=== PATIENT | female | born 1990 | race African-American/Black ===

== ENCOUNTER 2020-06-10 14:00 | Emergency (ER) | payer OTHER ==
[~2020-06-10] VITALS: Ht 172.7 cm; Wt 147.0 kg
[2020-06-10] MEDS ORDERED: PHENTERMINE H37.5 MG PO (14:16)
[2020-06-10] MEDS ORDERED: SUPER THERAVIT1 EACH PO (14:16)
[2020-06-10 14:21] LABS: URINE BILIRUBIN NEGATIVE (Negative); URINE BLOOD NEGATIVE (Negative); URINE CLARITY CLEAR; URINE COLOR YELLOW; URINE GLUCOSE-RANDOM NEGATIVE (Negative); URINE KETONES NEGATIVE (Negative); URINE LEUKOCYTES-REFLEX NEGATIVE (Negative); URINE NITRITE-REFLEX NEGATIVE (Negative); URINE PROTEIN NEGATIVE (Negative); URINE SPECIFIC GRAVITY 1.015 (1.005-1.030)
[2020-06-10 15:09] LABS: ABSOLUTE LYMPHOCYTES 1.4 thou/uL (0.8-5.3); ABSOLUTE MONOCYTES 0.5 thou/uL (0.0-1.2); BASOPHILS 0.3 %; EOSINOPHILS 0.1 %; HEMATOCRIT 42.2 % (37.0-47.0); HEMOGLOBIN 13.3 gm/dL (12.0-15.0); LYMPHOCYTES 10.8 %; MCHC 31.6 g/dL (28.0-37.0); MCV 75.8 fL (80.0-100.0); NUCLEATED RBCS 0 /100WBC; PLATELET COUNT* 311 thou/uL (150-400); POLYS 84.8 %; RBC 5.56 mil/uL (4.20-5.00); RDW-CV 15.2 % (10.5-14.5)
[2020-06-10 15:20] LABS: CALCIUM 8.9 mg/dL (8.5-10.1); CREATININE 0.8 mg/dL (0.6-1.3); POTASSIUM 4.1 mmol/L (3.5-5.1)
[2020-06-10 15:25] LABS: ALBUMIN 3.7 g/dL (3.4-5.0); TOTAL BILIRUBIN 0.3 mg/dL (<0.1-1.0); TOTAL PROTEIN 8.2 g/dL (6.4-8.2)
[2020-06-10] MEDS ORDERED: MIRALAX17 GM PO (16:17)
[2020-06-10] MEDS ORDERED: CITRATE OF MAG296 M1 PO (16:17)
[2020-06-10 16:33] VITALS: BP 147/95
== END 2020-06-10 16:35 | disposition home or self-care (01) ==
LOC: M.ERS 14:00
PROVIDERS: Physician Assistant
DX: R10.31 Right lower quadrant pain (principal); R11.2 Nausea with vomiting, unspecified

== ENCOUNTER 2020-08-23 18:04 | Inpatient (IN) | payer OTHER ==
[~2020-08-23] VITALS: Ht 172.7 cm; Wt 147.6 kg
[~2020-08-23 18:04] MED LIST: CITRATE OF MAG296 M1 PO; MIRALAX17 GM PO; PHENTERMINE H37.5 MG PO; SUPER THERAVIT1 EACH PO
[2020-08-23 18:18] VITALS: BP 161/86
[2020-08-23 18:32] LABS: URINE BLOOD NEGATIVE (Negative); URINE CLARITY CLEAR; URINE COLOR DARK YELLOW; URINE GLUCOSE-RANDOM NEGATIVE (Negative); URINE LEUKOCYTES-REFLEX NEGATIVE (Negative); URINE PROTEIN TRACE (Negative); URINE SPECIFIC GRAVITY 1.025 (1.005-1.030)
[2020-08-23 18:38] LABS: URINE BILIRUBIN 3+ (Negative); URINE KETONES 3+ (Negative)
[2020-08-23 18:39] LABS: ACETEST (KETONE CONFIRMATORY) Large (Negative); ICTOTEST (BILI CONFIRMATORY) Positive (Negative)
[2020-08-23 18:46] LABS: BACTERIA-REFLEX >30 Many /HPF (None Seen); CASTS None Seen /LPF (None Seen); CRYSTALS None Seen /LPF (None Seen); MUCUS >6 Heavy strn/LPF (None Seen); SQUAMOUS >10 Many /LPF (0-3); URINE RBC 0-2 Rare /HPF (0-2); URINE WBC-REFLEX 0-5 Rare /HPF (0-5)
[2020-08-23 19:00] LABS: ABSOLUTE BASOPHILS 0.1 thou/uL (0.0-0.2); ABSOLUTE EOSINOPHILS 0.1 thou/uL (0.0-0.7); ABSOLUTE LYMPHOCYTES 1.5 thou/uL (0.8-5.3); ABSOLUTE MONOCYTES 0.7 thou/uL (0.0-1.2); ABSOLUTE NEUTROPHILS 8.3 thou/uL (1.6-8.1); BASOPHILS 0.6 %; EOSINOPHILS 0.5 %; HEMATOCRIT 44.5 % (37.0-47.0); HEMOGLOBIN 14.4 gm/dL (12.0-15.0); LYMPHOCYTES 14.4 %; MCH 24.4 pg (26.0-34.0); MCHC 32.3 g/dL (28.0-37.0); MCV 75.6 fL (80.0-100.0); MONOCYTES 6.5 %; MPV 7.6 fl. (7.2-11.1); NUCLEATED RBCS 0 /100WBC; PLATELET COUNT* 341 thou/uL (150-400); RBC 5.88 mil/uL (4.20-5.00); RDW-CV 14.6 % (10.5-14.5); WBC 10.7 thou/uL (4.0-11.0)
[2020-08-23 19:09] LABS: CALCIUM 9.9 mg/dL (8.5-10.1); CREATININE 0.8 mg/dL (0.6-1.3); POTASSIUM 3.7 mmol/L (3.5-5.1)
[2020-08-23 19:21] LABS: ALBUMIN 3.9 g/dL (3.4-5.0); TOTAL BILIRUBIN 6.1 mg/dL (<0.1-1.0); TOTAL PROTEIN 8.8 g/dL (6.4-8.2)
[2020-08-24 00:51] VITALS: BP 136/85
[2020-08-24 01:54] VITALS: BP 156/97
--- NOTE | 2020-08-24 05:24 | NUR ---
RECEIVED REPORT FROM LINK NAIR. PT TRANSFERRED TO 221. PT A&OX4. VSS. GEM EXPERT IN PLACE. ADMISSION HISTORY & PHYSICAL ASSESSMENT COMPLETED AND CHARTED. ORIENTED TO ROOM & CALL LIGHT. PT ON RA. PT ON MEDSURG STATUS. PT COMPLAINED OF ABDOMINAL PAIN RADIATES TO THE BACK-MED GIVEN PER OCT. INSTRUCTED ON NPO POST MIDNIGHT ORDERED. COMMUNICATES UNDERSTANDING. CALL LIGHT WITHIN REACH.
[2020-08-24 07:20] LABS: ABSOLUTE BASOPHILS 0.1 thou/uL (0.0-0.2); ABSOLUTE EOSINOPHILS 0.1 thou/uL (0.0-0.7); ABSOLUTE LYMPHOCYTES 2.1 thou/uL (0.8-5.3); ABSOLUTE MONOCYTES 0.8 thou/uL (0.0-1.2); ABSOLUTE NEUTROPHILS 4.6 thou/uL (1.6-8.1); BASOPHILS 0.7 %; EOSINOPHILS 1.3 %; HEMATOCRIT 37.8 % (37.0-47.0); HEMOGLOBIN 12.1 gm/dL (12.0-15.0); LYMPHOCYTES 27.6 %; MCH 24.2 pg (26.0-34.0); MCHC 32.1 g/dL (28.0-37.0); MCV 75.2 fL (80.0-100.0); MONOCYTES 10.2 %; MPV 7.5 fl. (7.2-11.1); NUCLEATED RBCS 0 /100WBC; PLATELET COUNT* 297 thou/uL (150-400); POLYS 60.2 %; RBC 5.02 mil/uL (4.20-5.00); RDW-CV 14.1 % (10.5-14.5); WBC 7.6 thou/uL (4.0-11.0)
[2020-08-24 07:54] LABS: ALBUMIN 2.9 g/dL (3.4-5.0); CALCIUM 8.6 mg/dL (8.5-10.1); CREATININE 0.8 mg/dL (0.6-1.3); DIRECT BILIRUBIN 4.9 mg/dL (<0.1-0.3); POTASSIUM 3.6 mmol/L (3.5-5.1); TOTAL BILIRUBIN 5.6 mg/dL (<0.1-1.0); TOTAL PROTEIN 6.9 g/dL (6.4-8.2)
[2020-08-24 08:00] VITALS: BP 138/78
[2020-08-24 11:22] VITALS: BP 138/78
--- NOTE | 2020-08-24 11:50 | EKG ---
[place] [address] ELECTROCARDIOGRAM REPORT Name: VENTURA CORDERODESI PABLO Room: [address]#: [id number] Admission: 08/23/20 Attend Phys: Yola Dyer MD Discharge: Date of : 86 Date of Service: 08/23/20 1833 Report #: [id number] THIS REPORT FOR: //name// [facility] ED Test Date: 2020-08-23 Test Time: 18:33:05 Pat Name: DESI CORDERO Department: Room: [facility] Gender: F Edger Operator: LEANNE : 1990 Requested By: Tunde Xiong Order Number: [id number] MD: Fahad Huston Measurements Intervals [place] Rate: 98 P: 32 CO: 125 QRS: -6 QRSD: 84 T: 40 QT: 334 QTc: 427 Interpretive Statements Sinus rhythm LVH by voltage No previous ECG available for comparison Electronically Signed On 08-24-2020 11:50:23 STORE LEAD by Fahad Huston [email or web address] <ELECTRONICALLY SIGNED> By: Fahad Huston MD, [facility] 08/24/20 1150 1833 1833 Fahad Huston MD, [facility] /EPI
[2020-08-24 17:10] VITALS: BP 156/84
[2020-08-24 20:00] VITALS: BP 130/77
[2020-08-25] VITALS: BP 135/90
[2020-08-25 03:57] VITALS: BP 141/84
[2020-08-25 04:33] LABS: ABSOLUTE LYMPHOCYTES 1.1 thou/uL (0.8-5.3); ABSOLUTE MONOCYTES 0.5 thou/uL (0.0-1.2); ABSOLUTE NEUTROPHILS 6.1 thou/uL (1.6-8.1); BASOPHILS 0.2 %; EOSINOPHILS 0.6 %; HEMATOCRIT 35.7 % (37.0-47.0); HEMOGLOBIN 11.4 gm/dL (12.0-15.0); LYMPHOCYTES 14.7 %; MCHC 31.9 g/dL (28.0-37.0); MCV 75.3 fL (80.0-100.0); MONOCYTES 5.9 %; MPV 7.9 fl. (7.2-11.1); NUCLEATED RBCS 0 /100WBC; PLATELET COUNT* 302 thou/uL (150-400); POLYS 78.6 %; RBC 4.75 mil/uL (4.20-5.00); RDW-CV 14.6 % (10.5-14.5); WBC 7.7 thou/uL (4.0-11.0)
--- NOTE | 2020-08-25 04:47 | NUR ---
ASSUMED CARE OF PT AFTER REPORT AT 1930. PT A&OX4. VSS. PHYSICAL ASSESSMENT COMPLETED AND CHARTED. PT ON RA. PT ON MEDSURG STATUS. PT COMPLAINED OF ABDOMINAL PAIN RADIATING TO BACK- MED GIVEN PER MAR. PT ABLE TO SLEEP WELL. CALL LIGHT WITHIN REACH.
[2020-08-25 04:59] LABS: ALBUMIN 2.7 g/dL (3.4-5.0); CALCIUM 8.6 mg/dL (8.5-10.1); CREATININE 0.7 mg/dL (0.6-1.3); MAGNESIUM 2.2 mg/dL (1.8-2.4); PHOSPHORUS* 3.3 mg/dL (2.5-4.9); POTASSIUM 3.9 mmol/L (3.5-5.1); TOTAL BILIRUBIN 3.6 mg/dL (<0.1-1.0); TOTAL PROTEIN 6.6 g/dL (6.4-8.2)
[2020-08-25 05:21] LABS: % SATURATION 25 % (20-39); IRON 60 ug/dL (50-175)
[2020-08-25 08:00] VITALS: BP 122/68
--- NOTE | 2020-08-25 09:26 | NUR ---
CM SPOKE TO THE PT TO DISCUSS CM ASSESSMENT. PT A&0, INDEPENDENT WITH ADL'S, ACTIVE AND WORKS OUTSIDE THE HOME. NO CM D/C PLANNING NEEDS ANTICIPATED. CM WILL REMAIN AVAILABLE TO ASSIST AND FOLLOW NEEDED.
--- NOTE | 2020-08-25 17:42 | NUR ---
REPORT RECEIVED FROM CARINE NAIR @ 8098. PT TRANSPORTED TO UNIT VIA CART @ 3543. PT HAS FAMILY AT BEDSIDE. THIS NURSE AGREES WITH ASSESSMENT CHARTED. VSS. LEFT IV IS S/L IN LEFT AC. PT IS PLEASANT, ALERT, AND ORIENTED AT THIS TIME. PT UP AD NADIRA. WILL CALL IF ASSISTANCE NEEDED. PT ON CLEAR LIQUIDS AT THIS TIME. WILL CONTINUE TO MONITOR. PAIN MEDS DOCUMENTED.
--- NOTE | 2020-08-25 18:34 | CON ---
[address] [address] CONSULTATION Name: DESI YAP Room: [address] IN M.R.#: [id number] Admission: 08/25/20 Attend Phys: Yola Dyer MD Discharge: Date of : 86 Report #: [id number] THIS REPORT FOR: cc: Callie Grande Maggie M. DO ~ Amilcar Mitchell DO DATE OF SERVICE: 08/24/2020 REFERRING PHYSICIAN: Dr. Omaira Gregory. REASON FOR CONSULTATION: Right upper quadrant pain with elevated LFTs. IMPRESSION: 1. Obstructive jaundice, likely related to choledocholithiasis. 2. Right upper quadrant pain compatible with cholelithiasis and probable choledocholithiasis. RECOMMENDATIONS: 1. Since the patient has dilated biliary tree noted on abdominal ultrasound and CT scan and multiple gallstones noted within the gallbladder, we will proceed with an ERCP today. Hold off on doing an MRCP as it is not going to change the patient's management, which is to proceed with a preoperative ERCP. 2. We will proceed with ERCP, biliary sphincterotomy, stone extraction and/or stent placement. I have discussed the nature, risks, benefits and alternatives of the procedure with the patient as well and she is agreeable to the same. HISTORY OF PRESENT ILLNESS: The patient is a pleasant 30-year-old -Mosotho female who was admitted to the hospital with complaints of rather severe upper abdominal pain, which has been across the upper abdomen into her back, which has been ongoing off and on for the last month and a half. She states she was seen in the Emergency Room back in [facility]. It was thought that it was related to constipation. She has tendency towards constipation, but this is all different. Her pain has been mostly postprandial. She denies any complaints of any dysphagia, odynophagia, chronic reflux or indigestion. She does take occasional Tums. 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 She has had no fevers or chills. She has been having to take pain medication in the form of Dilaudid every 3 hours because of pain. She proceeded to the Emergency Room, had labs done, which revealed obstructive jaundice and her CT scan revealed evidence for the same. She underwent abdominal ultrasound this morning, which revealed multiple gallstones and dilated biliary tree. She presents now for further evaluation and treatment. ALLERGIES: [place] [address] CONSULTATION Name: DESI YAP Room: [address] IN [facility]#: [id number] Admission: 08/25/20 Attend Phys: Yola Dyer MD Discharge: Date of : 86 Report #: [id number] MEDICATIONS: At home include phentermine and multivitamin. She has been taking some magnesium citrate and MiraLax. PAST MEDICAL AND SURGICAL HISTORY: Remarkable for migraine headaches and obesity. SOCIAL HISTORY: She does not smoke or drink. FAMILY HISTORY: Remarkable for gallstones in her mother. PHYSICAL EXAMINATION: GENERAL: Pleasant 30-year-old -Mosotho female who is awake and alert. CARDIOPULMONARY: Benign. ABDOMEN: Soft and tender in the right upper quadrant. No rebound or guarding noted. LABORATORY DATA: Revealed a white count of 7.6, hemoglobin 12.1, platelet count of 297,000, MCV is 75.2 and RDW is 14.1. Her sodium 140, potassium 3.6, chloride 102, bicarbonate is 26, BUN 7, creatinine 0.8. Her total bilirubin 5.6, alkaline phosphatase is 217, AST is 178, ALT 451. Her albumin is 3.9. Her lipase is 101. CT scan of the abdomen and pelvis revealed dilated intra and extrahepatic ducts with normal-appearing pancreas. Abdominal ultrasound revealed multiple gallstones with dilated biliary tree. DISCUSSION: At the present time, the patient appears to be a good candidate for endoscopic evaluation. We will proceed with preoperative ERCP today and make further recommendations thereafter. I have discussed the plans with the patient along with her sister and they are agreeable to the same. <ELECTRONICALLY SIGNED> By: Amilcar Mitchell DO 08/25/20 1834 1303 1432Amilcar Mitchell DO /nt
[2020-08-25 20:00] VITALS: BP 132/55
--- NOTE | 2020-08-26 04:52 | NUR ---
PATIENT SLEPT WELL DURING THIS SHIFT. PT UP AD NADIRA TO BATHROOM. PT ON FLUIDS/ANTIBIOTICS PER DR ORDER. PT HAS BEEN NPO SINCE MIDNIGHT FOR SURGERY. PT REQUESTED PAIN MEDICATION X1 DURING THIS SHIFT AND RECEIVED DILUADID 1MG IV. PT ABLE TO RETURN TO SLEEP AFTERWARDS. FREQUENTLY USED ITEMS AND CALL LIGHT WITHIN REQACH. SIDERAILS UPX2. WILL CONTINUE TO MONITOR.
[2020-08-26 05:29] LABS: ABSOLUTE EOSINOPHILS 0.1 thou/uL (0.0-0.7); ABSOLUTE LYMPHOCYTES 2.7 thou/uL (0.8-5.3); ABSOLUTE MONOCYTES 0.4 thou/uL (0.0-1.2); BASOPHILS 0.7 %; HEMATOCRIT 34.9 % (37.0-47.0); HEMOGLOBIN 11.1 gm/dL (12.0-15.0); LYMPHOCYTES 42.6 %; MCH 23.9 pg (26.0-34.0); MCHC 31.8 g/dL (28.0-37.0); MCV 75.2 fL (80.0-100.0); MONOCYTES 7.1 %; MPV 7.6 fl. (7.2-11.1); NUCLEATED RBCS 0 /100WBC; PLATELET COUNT* 292 thou/uL (150-400); POLYS 47.6 %; RBC 4.64 mil/uL (4.20-5.00); RDW-CV 14.7 % (10.5-14.5); WBC 6.4 thou/uL (4.0-11.0)
[2020-08-26 05:51] LABS: ALBUMIN 2.5 g/dL (3.4-5.0); CALCIUM 8.6 mg/dL (8.5-10.1); CREATININE 0.8 mg/dL (0.6-1.3); POTASSIUM 3.6 mmol/L (3.5-5.1); TOTAL BILIRUBIN 1.8 mg/dL (<0.1-1.0); TOTAL PROTEIN 6.1 g/dL (6.4-8.2)
[2020-08-26 07:15] VITALS: BP 154/80
[2020-08-26 10:17] VITALS: BP 154/80
--- NOTE | 2020-08-26 12:29 | NUR ---
Pt to have lap ofelia today, possible dc to home post surgery. No needs.
--- NOTE | 2020-08-26 17:36 | NUR ---
PT REMAINED ALERT AND ORIENTED. PT RESTING IN BED. PT C/O PAIN, MEDS GIVEN ORDERED. CLAIRE DRAIN IN PLACE. FALL RISK PRECAUTIONS IN PLACE. HOURLY ROUNDING COMPLETED.
[2020-08-26 17:43] VITALS: BP 161/86
[2020-08-26 20:15] VITALS: BP 141/76
[2020-08-27] VITALS (7 sets, daily range): BP systolic 134–154; BP diastolic 78–96
[2020-08-27 05:08] LABS: HEPATITIS B SURFACE AG Negative (Negative)
[2020-08-27 05:21] LABS: HEMATOCRIT 36.2 % (37.0-47.0); HEMOGLOBIN 11.4 gm/dL (12.0-15.0); MCH 23.9 pg (26.0-34.0); MCHC 31.6 g/dL (28.0-37.0); MCV 75.7 fL (80.0-100.0); MPV 7.6 fl. (7.2-11.1); RBC 4.79 mil/uL (4.20-5.00); RDW-CV 15.1 % (10.5-14.5); WBC 10.6 thou/uL (4.0-11.0)
[2020-08-27 05:39] LABS: ALBUMIN 2.6 g/dL (3.4-5.0); CALCIUM 8.5 mg/dL (8.5-10.1); CREATININE 0.8 mg/dL (0.6-1.3); POTASSIUM 3.8 mmol/L (3.5-5.1); TOTAL BILIRUBIN 1.1 mg/dL (<0.1-1.0); TOTAL PROTEIN 6.3 g/dL (6.4-8.2)
--- NOTE | 2020-08-27 07:01 | NUR ---
PT SLEPT WELL OFF AND ON OVERNIGHT, RECEIVING IV AND PO PAIN MED ONE TIME EACH OVERNITE. RUQ ABD CLAIRE DRAIN WITH 10 ML BLOODY DRAINAGE. ABD LAP SITE CDI WITH DERMABOND, PINK DRNG ON CLAIRE SITE DRSG UNCHANGED FROM START OF SHIFT. UP AD NADIRA TO BATHROOM TO VOID, NO BM BUT PT STATES SHE IS PASSING GAS. NO N/V, TOLERATED DINNER. HOPEFUL FOR DC HOME. LAC SL IV.
[2020-08-27 12:37] LABS: ABSOLUTE BASOPHILS 0.1 thou/uL (0.0-0.2); ABSOLUTE EOSINOPHILS 0.1 thou/uL (0.0-0.7); ABSOLUTE LYMPHOCYTES 2.9 thou/uL (0.8-5.3); ABSOLUTE MONOCYTES 0.7 thou/uL (0.0-1.2); ABSOLUTE NEUTROPHILS 6.9 thou/uL (1.6-8.1); BASOPHILS 0.8 %; EOSINOPHILS 0.7 %; HEMATOCRIT 35.9 % (37.0-47.0); HEMOGLOBIN 11.5 gm/dL (12.0-15.0); LYMPHOCYTES 26.9 %; MCH 24.2 pg (26.0-34.0); MCHC 32.1 g/dL (28.0-37.0); MCV 75.2 fL (80.0-100.0); MONOCYTES 6.7 %; MPV 7.2 fl. (7.2-11.1); NUCLEATED RBCS 0 /100WBC; PLATELET COUNT* 316 thou/uL (150-400); POLYS 64.9 %; RBC 4.77 mil/uL (4.20-5.00); RDW-CV 14.8 % (10.5-14.5); WBC 10.6 thou/uL (4.0-11.0)
[2020-08-27 13:05] LABS: ALBUMIN 2.6 g/dL (3.4-5.0); CALCIUM 8.5 mg/dL (8.5-10.1); CREATININE 0.9 mg/dL (0.6-1.3); POTASSIUM 3.1 mmol/L (3.5-5.1); TOTAL PROTEIN 6.3 g/dL (6.4-8.2)
--- NOTE | 2020-08-27 13:35 | NUR ---
PATIENT DISCHARGED TO HOME. DISCHARGE PAPERS REVIEWED AND SIGNED. PRESCRIPTION AND INFORMATION SHEETS GIVEN. IV REMOVED. EDUCATION GIVEN ON CLAIRE DRAIN. PATIENT DENIES ANY FURTHER NEEDS. PATIENT TAKEN BY WHEELCHAIR TO EXIT. LEFT WITH FRIEND.
[2020-08-27 16:08] LABS: HGB SOLUBILITY Negative (Negative)
[2020-08-27 21:06] LABS: IgG 897 mg/dL (586-1602); IgM 99 mg/dL (26-217)
[2020-08-28 15:09] LABS: ANA INTERPRETATION Negative (Negative)
--- NOTE | 2020-09-01 18:06 | PATH ---
[address] [address] PATHOLOGY RPT PROCEDURE Name: RAHEEL YAP Room: [address] IN ..#: [id number] Admission: 08/25/20 Date of : [birth year] Discharge: 08/27/20 Report #: [id number] Path Case #: [id number] [facility] Accession Number: [id number] . 01 Material submitted: . gallbladder - GALLBLADDER AND CONTENTS . 01 Clinician provided ICD-10: K80.0 R65.1 . 01 Clinical history: . CHOLEDOCHOLITHIASIS . 02 Diagnosis: Gallbladder and contents: - Chronic and acute erosive cholecystitis with mural fibrosis and cholelithiasis. . (DESIREE:ting; 09/01/2020) [facility] 09/01/2020 1544 Local . 02 Electronically signed: . Michael Shelton MD, Pathologist NPI- [id number] . 01 Gross description: . Received in formalin labeled "Raheel Yap, gallbladder and contents" is intact cholecystectomy specimen measuring 8.4 x 4.1 x 3.1 cm. The serosa is smooth, stevens white with a roughened hepatic bed. The specimen is opened to reveal velvety, stevens brown mucosa without polyps or masses. The specimen is sectioned to reveal a thickened stevens-white wall with an average thickness of 0.7 cm and covering an area measuring 5.9 x 4.1 cm and is located 1.6 cm from the cystic duct. The cystic duct is inked black and the hepatic bed is inked blue. There are multiple stevens white multifaceted calculi measuring in aggregate 6.1 x 4.1 x 1.9 cm and are in the cystic duct but not obstructing. Supervisor [employer] sections are submitted as follows: A1. Cystic duct margin, body, and fundus A2. Thickened wall at hepatic bed ([facility]; 08/29/2020) GZA/GZA 09/01/2020 1543 Local . 02 Pathologist provided ICD-10: K80.12 . 02 CPT . 409468 Specimen Comment: A courtesy copy of this report has been sent to [phone] [place] [address] PATHOLOGY RPT PROCEDURE Name: RAHEEL YAP PABLO Room: [address] IN M.R.#: [id number] Admission: 08/25/20 Date of : 86 Discharge: 08/27/20 Report #: [id number] Path Case #: [id number] Specimen Comment: Report sent to Performed at: 01 [facility] [place], [place], [place] [id number] MD Kamar Albarado MD Phone: [phone] Performed at: 02 [facility] [address], [place], [place] [id number] MD Michael Shelton MD Phone: [phone]
--- NOTE | 2020-09-03 08:32 | OP ---
[address] [address] OPERATIVE REPORT Name: VENTURACIELO LEYVADESI ESQUEDA Room: [address]#: [id number] Admission: 08/25/20 Attend Phys: Yola Dyer MD Discharge: 08/27/20 Date of : 86 Report #: [id number] THIS REPORT FOR: cc: Callie Grande Maggie M. DO ~ Brock, Christie M. DO DICTATED BY: Rod Raymundo DO DATE OF SERVICE: 08/26/2020 PREOPERATIVE DIAGNOSES: Acute cholecystitis with cholelithiasis with obstruction. POSTOPERATIVE DIAGNOSES: Acute cholecystitis with cholelithiasis with obstruction. FINDINGS: Acute on chronic inflammation of the gallbladder and multiple stones. SURGEON: Omaira Gregory DO CO-SURGEON: Rod Raymundo, PGY-5 SECURITY SYSTEM TECHNICIAN: GELA Estevez student. OPERATION PERFORMED: Laparoscopic cholecystectomy. ANESTHESIA: General, local. ESTIMATED BLOOD LOSS: 20 mL. SPECIMEN: Gallbladder. COMPLICATIONS: None. CONDITION: Stable. DISPOSITION: PACU to floor. DRAINS: A 15-Slovak CLAIRE in the right upper quadrant. INDICATIONS: The patient is a 30-year-old female who presented to the Emergency Department with complaints of abdominal pain. She was found to have cholelithiasis and cholecystitis as well as hyperbilirubinemia. On workup, she was found to have choledocholithiasis. She was taken for ERCP with sphincterotomy. At that time, she had findings of cholangitis. [place] [address] OPERATIVE REPORT Name: VENTURACIELO LEYVADHEERAJDESI PABLO Room: [address] IN [facility]#: [id number] Admission: 08/25/20 Attend Phys: Yola Dyer MD Discharge: 08/27/20 Date of : 86 Report #: [id number] informed of the risks and benefits of laparoscopic cholecystectomy with risks including but not limited to bleeding, infection, bile duct injury, bowel injury, open procedure, hernia formation, need for reoperation, chronic diarrhea. She understood the risks and decided to proceed with surgery. DESCRIPTION OF PROCEDURE: After informed consent was obtained, the patient was brought to the operating room and placed in supine position. SCDs were on and running. Preoperative antibiotics were given. General anesthesia was administered with an ET tube. The patient was prepped and draped in the usual sterile fashion. A surgical pause was held to confirm proper patient and procedure. A vertical supraumbilical incision was made with an 11 blade. Dissection was carried through the subcutaneous fat using blunt dissection until the fascia was identified and elevated with 2 Kochers. Cautery was used to incise the fascia. Peritoneum was bluntly entered using a Vandana. 0 Vicryl stay sutures were placed on either side of the fascia. 12 mm Kenneth was introduced into the abdomen. The abdomen was insufflated. The patient was positioned head up and right side up. A 5 mm port was placed in the epigastrium under direct visualization. Two additional 5 mm ports were placed in the right upper quadrant under direct visualization. The gallbladder was visualized. It was acutely inflamed, although it did not have any adhesions. It was quite tense. Gallbladder was grasped and reflected cephalad. The common bile duct appeared somewhat kinked and adhesed to the cystic duct. Blunt dissection and sharp dissection with scissors were used to take down the single adhesion unkinking the common bile duct and removing it from our field of view. Cautery was used to open the peritoneum over Jaida's pouch. Blunt dissection was used to develop the planes. Deep to this, there was much difficulty with dissecting the peritoneum free due to the acute inflammation. The tissues were hard and woody preventing easy blunt dissection and creation of the windows. As the medial peritoneum was incised using cautery, the cystic artery was encountered. This was circumferentially dissected and grasped for hemostasis. Once dissected, a 5 mm clip gold burnisher was used to fire a clip above and below. It was divided using scissors. Blunt dissection was then carried out to further identify the cystic duct. The cystic duct was extremely dilated and inflamed. Once completely behind the cystic duct, the identity of the cystic duct was confirmed. The size of the duct prohibited use of a standard 5 mm clip gold burnisher, so a large 10 mm clip gold burnisher was used. The 5 mm epigastric port was upsized to a 12 mm port. The clip gold burnisher was introduced through this. Two clips were placed on the cystic duct proximally and 1 distally and the duct was divided using laya. The gallbladder was then elevated. There was some leakage of bile from the gallbladder side of the cystic duct due to slippage of the cystic duct clip; however, the cystic duct stump clips were intact without any bile leak. The gallbladder was elevated and dissected free from the liver bed. There was a small arterial branch posteriorly, which was clipped. Once completely free, the gallbladder was placed within an EndoCatch bag and placed aside. There was a small rent in the liver from dissection that was hemostatic without any [address] [address] OPERATIVE REPORT Name: DESI YAP Room: 309-P [facility]#: [id number] Admission: 08/25/20 Attend Phys: Yola Dyer MD Discharge: 08/27/20 Date of : 86 Report #: [id number] intervention. The liver bed was diffusely oozy. This was attempted to be controlled using cautery, although it continued to ooze, so a piece of Surgicel was introduced through the 12 mm port and placed within the gallbladder fossa. The clips were hemostatic and there was no bile leak from the clips. The right upper quadrant was thoroughly irrigated and suctioned. It was inspected finally and noted to be dry. Surgicel was left in place in the gallbladder fossa. The patient was positioned supine. A 15-Slovak CLAIRE drain was introduced through the lateral trocar. All trocars were removed under direct visualization and the abdomen was desufflated. The specimen was removed from the supraumbilical incision after the fascia was extended using heavy curved Mayos. Fascia was elevated with 2 Kochers and a single [id number] using 0 Vicryl was used to close the fascia. This wound was closed in layered fashion using 3-0 Vicryl and 4-0 Monocryl. The epigastric port was closed using 3-0 Vicryl and 4-0 Monocryl. The other port site was closed using 4-0 Monocryl. The drain was secured in place using 3-0 nylon. Wounds were cleansed and dressed with Dermabond. The patient was emerged from anesthesia, 30 mL of 0.5% Marcaine was used throughout the procedure. All counts were correct. The patient was transferred to the PACU in stable condition. <ELECTRONICALLY SIGNED> By: Omaira Gregory DO 09/03/20 0832 1605 1623Cchavez Gregory DO /nt
== END 2020-08-27 13:30 | disposition home or self-care (01) | DRG 418 ==
LOC: M.ERS 18:04 → M.TBA-ER 22:22 → M.2W 22:22 → M.3W 08-25 12:06
PROVIDERS: Emergency Medicine Emergency Medical Services; Internal Medicine Gastroenterology; Surgery; ADMIT Family Medicine; ATTEND Family Medicine
PROC: 0F798ZZ Dilation of Common Bile Duct, Via Natural or Artificial Opening Endoscopic (ICD-10-PCS; principal; 2020-08-25)
PROC: 0FT44ZZ Resection of Gallbladder, Percutaneous Endoscopic Approach (ICD-10-PCS; 2020-08-26)
DX: K80.01 Calculus of gallbladder with acute cholecystitis with obstruction (principal); R65.10 Systemic inflammatory response syndrome (SIRS) of non-infectious origin without acute organ dysfunction; N39.0 Urinary tract infection, site not specified; Z68.42 Body mass index [BMI] 45.0-49.9, adult; Z20.822 Contact with and (suspected) exposure to COVID-19; G43.909 Migraine, unspecified, not intractable, without status migrainosus; K82.8 Other specified diseases of gallbladder; K83.8 Other specified diseases of biliary tract; E66.01 Morbid (severe) obesity due to excess calories; B96.20 Unspecified Escherichia coli [E. coli] as the cause of diseases classified elsewhere; Z79.899 Other long term (current) drug therapy; Z80.1 Family history of malignant neoplasm of trachea, bronchus and lung; Z83.3 Family history of diabetes mellitus